=== PATIENT | female | born 1955 | race Caucasian/White ===

== ENCOUNTER → 2018-09-05 | Outpatient (CLI) | payer MEDICARE, OTHER ==
[~2018-09-05] MED LIST: BUPR75TA6 PO; CALC-451 PO; CLON1TAB11 PO; CYCL-259 PO; FENO134C PO; FLAX100029 PO; FLUO20TA25 PO; FOLI0.8T2 PO; GABA600T7 PO; GLIP10TA13 PO; HYDR-3245 PO; HYDR-3307 PO; LISI-167 PO; METF10002 PO; METF500T17 PO; METH750T87 PO; OMEG1CAP23 PO; OXCA300T19 PO; PRAV20TA2 PO; PRAV40TA2 PO
== END | disposition home or self-care (01) ==
LOC: ROC 10:51
PROVIDERS: ATTEND Radiology Radiation Oncology
DX: Z08 Encounter for follow-up examination after completed treatment for malignant neoplasm (principal); D32.0 Benign neoplasm of cerebral meninges
CPT/HCPCS: G0463